=== PATIENT | male | born 1985 | race Caucasian/White ===

== ENCOUNTER 2021-05-19 09:25 | Outpatient (REF) | payer OTHER, SELFPAY ==
[2021-05-19 11:19] LABS: MANUAL DIFF FLAG NO
[2021-05-19 11:29] LABS: Eosinophils Absolute Auto 0.4 X10*3/uL (0.0-0.4); Eosinophils Percent Auto 9.8 % (0-4); Hematocrit 43.4 % (42.0-52.0); Hemoglobin 14.6 g/dl (14.0-18.0); Imm Gran Abs Auto 0.01 X10*3/uL (0.00-0.03); Imm Gran Pct Auto 0.2 % (0.0-0.4); Lymphocytes Absolute Auto 1.2 X10*3/uL (1.2-4.9); Lymphocytes Percent Auto 29.1 % (20-40); Mean Corpuscular HGB Conc 33.6 g/dl (31.0-36.0); Mean Corpuscular Hemoglobin 30.5 pg (27.0-33.0); Mean Corpuscular Volume 90.8 fL (80.0-98.0); Mean Platelet Volume 9.5 fL (9.4-12.4); Monocytes Absolute Auto 0.4 X10*3/uL (0.1-1.2); Monocytes Percent Auto 9.8 % (2-11); Neutrophils Absolute Auto 2.1 x10*3/uL (2.0-8.3); Neutrophils Percent Auto 50.1 % (45-73); Platelet Count 221 X10*3/uL (160-400); Red Blood Count 4.78 X10*6/uL (4.60-5.80); Red Cell Distribution Width 11.9 % (11.0-16.0); White Blood Count 4.2 X10*3/uL (4.8-10.8)
[2021-05-19 11:43] LABS: Alanine Aminotransferase 28 U/L (0-40); Albumin Level 4.4 g/dL (3.5-5.0); Alkaline Phosphatase 76 U/L (39-117); Anion Gap 14 (12-20); Aspartate Amino Transferase 21 U/L (5-37); Bilirubin Total 0.5 mg/dL (0.0-1.0); Blood Urea Nitrogen 15 mg/dL (9-16); Calcium 9.4 mg/dL (8.4-10.2); Carbon Dioxide 28 mmol/L (22-29); Chloride 103 mmol/L (96-108); Estimated Glomerular Filt Rate > 60; Glucose Fasting 87 mg/dL (60-99); Potassium 4.5 mmol/L (3.3-5.1); Sodium 140 mmol/L (135-145); Total Protein 6.9 g/dL (6.5-8.0)
[2021-05-19 12:05] LABS: Thyroid Stimulating Hormone 0.69 uIU/mL (0.32-4.0)
[2021-05-23 12:16] LABS: Vitamin D 25-OH, D2 <4 ng/mL; Vitamin D 25-OH, D3 34 ng/mL; Vitamin D 25-OH, Total 34 ng/mL (30-100)
== END 2021-05-19 09:26 | disposition home or self-care (01) ==
LOC: HO.HMGCLDS 09:25
PROVIDERS: Visit Provider Internal Medicine
DX: R53.82 Chronic fatigue, unspecified (principal); E55.9 Vitamin D deficiency, unspecified; D64.9 Anemia, unspecified
CPT/HCPCS: 36415; 80053; 82306; 84443; 85025

== ENCOUNTER 2022-02-24 10:34 | Outpatient (REF) | payer OTHER, SELFPAY ==
[2022-02-26 02:12] LABS: Lyme Abs Screen <0.90 index
== END 2022-02-24 10:35 | disposition home or self-care (01) ==
LOC: HO.HMGCLDS 10:34
PROVIDERS: PCP Internal Medicine; Visit Provider Physician Assistant
DX: R21 Rash and other nonspecific skin eruption (principal)
CPT/HCPCS: 36415; 86617; 86618

== ENCOUNTER 2022-05-24 10:05 | Outpatient (REF) | payer OTHER, SELFPAY ==
--- NOTE | ~2022-05-24 | XR_ITS ---
EXAMINATION: XR HAND, RIGHT CLINICAL INFORMATION: Pain in right hand COMPARISON: None TECHNIQUE: PA, lateral, and oblique views of the right hand. FINDINGS: The bones and soft tissues are normal. No fracture. Alignment is anatomic. Joint spaces are maintained. No erosions or soft tissue calcifications. XR/XR hand RT min 3V IMPRESSION: Unremarkable right hand.
== END 2022-05-24 10:06 | disposition home or self-care (01) ==
LOC: HO.HMGCX 10:05
PROVIDERS: PCP Internal Medicine; Visit Provider Physician Assistant
DX: M79.641 Pain in right hand (principal)
CPT/HCPCS: 73130

== ENCOUNTER 2022-07-08 14:31 | Outpatient (REF) | payer OTHER, SELFPAY ==
--- NOTE | ~2022-07-08 | XR_ITS ---
EXAMINATION: XR WRIST, RIGHT CLINICAL INFORMATION: Pain in the wrist. COMPARISON: None TECHNIQUE: Three views of the right wrist. FINDINGS: No fracture. No dislocation. Joint spaces are normal. No soft tissue calcification or other soft tissue abnormality. XR/XR wrist RT min 3V IMPRESSION: Normal right wrist.
== END 2022-07-08 14:32 | disposition home or self-care (01) ==
LOC: HO.HOSX 14:31
PROVIDERS: Visit Provider Physician Assistant
DX: M67.431 Ganglion, right wrist (principal); G56.01 Carpal tunnel syndrome, right upper limb
CPT/HCPCS: 73110; 99202

== ENCOUNTER 2022-08-02 16:22 | Outpatient (REF) | payer OTHER, SELFPAY ==
--- NOTE | ~2022-08-02 | US_ITS ---
EXAMINATION: US SCROTUM CLINICAL INFORMATION: Right testicular pain. COMPARISON: None TECHNIQUE: A sonogram of the scrotum was performed assessing rogers-scale appearance and color Doppler flow. Spectral Doppler analysis of the arterial and venous flow were performed in the testes bilaterally. FINDINGS: RIGHT: Right testicle measures 4.6 x 2.3 x 3.0 cm, volume 16.7 mL. No focal testicular parenchymal lesions are visualized. Spectral Doppler analysis of the arterial and venous flow is normal in the right testis. Right epididymal head is normal in size. No right hydrocele or varicocele is seen. Right epididymal Doppler flow is normal. LEFT: Left testicle measures 4.4 x 2.0 x 2.5 cm, volume 11.9 mL. No focal testicular parenchymal lesions are visualized. Spectral Doppler analysis of the arterial and venous flow is normal in the left testis. Left epididymal head is normal in size. No left hydrocele is seen. There are a few left varicoceles. Left epididymal Doppler flow is normal. US/US scrotum IMPRESSION: 1. No testicular mass or torsion is seen bilaterally. 2. A few left varicoceles are noted. 3. There is no significant hydrocele noted bilaterally.
== END 2022-08-02 16:23 | disposition home or self-care (01) ==
LOC: HO.US 16:22
PROVIDERS: Visit Provider Internal Medicine
DX: N50.811 Right testicular pain (principal)
CPT/HCPCS: 76870

== ENCOUNTER 2022-08-15 10:29 | Outpatient (REF) | payer OTHER, SELFPAY ==
[2022-08-15 10:58] LABS: MANUAL DIFF FLAG NO
[2022-08-15 11:04] LABS: Basophils Absolute Auto 0.1 X10*3/uL (0.0-0.2); Basophils Percent Auto 0.8 % (0-2); Eosinophils Absolute Auto 0.4 X10*3/uL (0.0-0.4); Hematocrit 44.7 % (42.0-52.0); Imm Gran Abs Auto 0.01 X10*3/uL (0.00-0.03); Imm Gran Pct Auto 0.2 % (0.0-0.4); Lymphocytes Absolute Auto 1.3 X10*3/uL (1.2-4.9); Lymphocytes Percent Auto 21.4 % (20-40); Mean Corpuscular HGB Conc 33.6 g/dl (31.0-36.0); Mean Corpuscular Hemoglobin 30.1 pg (27.0-33.0); Mean Corpuscular Volume 89.6 fL (80.0-98.0); Mean Platelet Volume 9.4 fL (9.4-12.4); Monocytes Absolute Auto 0.6 X10*3/uL (0.1-1.2); Monocytes Percent Auto 10.4 % (2-11); NRBC Pct Auto 0.3 /100WBC (0.0-0.2); Neutrophils Absolute Auto 3.7 x10*3/uL (2.0-8.3); Neutrophils Percent Auto 61.2 % (45-73); Platelet Count 222 X10*3/uL (160-400); Red Blood Count 4.99 X10*6/uL (4.60-5.80); Red Cell Distribution Width 11.9 % (11.0-16.0)
[2022-08-15 11:43] LABS: Anion Gap 13 (12-20); Blood Urea Nitrogen 13 mg/dL (9-16); Calcium 9.5 mg/dL (8.4-10.2); Carbon Dioxide 27 mmol/L (22-29); Chloride 103 mmol/L (96-108); Estimated Glomerular Filt Rate > 60; Glucose Random 83 mg/dL (60-115); Potassium 4.3 mmol/L (3.3-5.1); Sodium 139 mmol/L (135-145)
[2022-08-15 11:45] LABS: Influenza A PCR NEGATIVE (Negative); Influenza B PCR NEGATIVE (Negative); Resp Syncy Virus RNA Qual PCR POSITIVE (Negative); SARS COV2 PCR INHOUSE NEGATIVE (Negative)
== END 2022-08-15 10:30 | disposition home or self-care (01) ==
LOC: HO.HMGCLDS 10:29
PROVIDERS: PCP Internal Medicine; Visit Provider Physician Assistant
DX: Z20.822 Contact with and (suspected) exposure to COVID-19 (principal); R63.0 Anorexia; B34.9 Viral infection, unspecified
CPT/HCPCS: 0241U; 36415; 80048; 85025

== ENCOUNTER → 2022-10-06 13:59 | Outpatient (BNVA) | payer OTHER, SELFPAY | PROVIDERS: PCP Internal Medicine; Visit Provider Urology | DX: I86.1 Scrotal varices (principal); R53.82 Chronic fatigue, unspecified | CPT/HCPCS: 99202 ==

== ENCOUNTER 2022-10-13 11:31 | Outpatient (REF) | payer OTHER, SELFPAY ==
--- NOTE | 2022-10-13 10:00 | EMG_ITS ---
Right median and ulnar motor and sensory studies were performed. Right radial sensory studies were performed. Right median and lateral antecubital sensory studies were performed and paraspinal muscles were tested. IMPRESSION: This is an unremarkable study with no added evidence of entrapment neuropathy or a proximal lesion. MD GEORGIA Villar/ACEL / [phone]
== END 2022-10-13 11:32 | disposition home or self-care (01) ==
LOC: HO.NEURO 11:31
PROVIDERS: PCP Internal Medicine; Visit Provider Physician Assistant
DX: G56.01 Carpal tunnel syndrome, right upper limb (principal)
CPT/HCPCS: 95886; 95910

== ENCOUNTER → 2022-12-12 14:48 | Outpatient (BNVA) | payer OTHER, SELFPAY | PROVIDERS: PCP Internal Medicine; Visit Provider Physician Assistant ==

== ENCOUNTER 2023-01-19 13:03 | Outpatient (AMB) | payer OTHER, SELFPAY ==
[2023-01-19 13:05] VITALS: BP 122/77; PULSE 56; BMI 28.3
--- NOTE | 2023-01-19 13:05 | MHC.OFFVIS ---
Intake Vital Signs 01/19/23 13:05 Height 5 ft 11 in Weight 203 lb BMI 28.3 BP 122/77 Blood Pressure Location Rt brachial Position Sitting Pulse 56 Intake Visit Reasons: Hemorrhoids Intake Note: This patient presents for an assessment for hemorrhoids. Patient c/o; 2018 had colonoscopy, rectal bleeding when wiping, constipation, straining with bowel movements. Telephone Order Dispatcher Required: No Accompanied by: Other Relationship Allergies No Known Allergies Allergy (Verified 01/19/23 13:05) Medication List - Last Reconciled 01/19/23 by Weston Bashir MD No Known Home Meds HPI Hemorrhoids HPI Details 37-year-old healthy male, referred because of hemorrhoid issues. He says he has had hemorrhoids for many years. He says he had a bad episode of hemorrhoids swelling about 5 years ago but he did not have any surgery at that time He says for the past 2-3 months, he has been noticing his hemorrhoids to be much larger. Furthermore, he has had difficulty with hygiene because of this. He says he has to wipe frequently after bowel movements because of the size of the hemorrhoids causing problems with cleaning. He has significant discomfort and says that it is time that he has this removed. He says he had a problem with constipation in the distant past. [facility] Medical History (Updated 01/19/23 @ 13:47 by Weston Bashir MD) Basal cell carcinoma Chronic fatigue Hemorrhoids with complication Surgical History History of basal cell carcinoma of skin History of knee surgery Family History Mother Skin cancer Breast cancer Father Substance use disorder Social History Housing: Apartment Alcohol intake: current Alcohol intake frequency: holidays/special occasions only Alcohol type: beer Patient Tobacco Use Status: Never used Tobacco e-Cigarette/Vaping Use: Never Used Second Hand Smoke Exposure: No service: Yes Current occupational status: employed Current occupational exposures/hazards: No Cognitive needs: No Hearing needs: No Vision needs: No Review of Systems Const Denies chills and Denies fever(s) Card Denies chest pain, Denies dyspnea and Denies dyspnea on exertion Resp Denies cough, Denies dyspnea and Denies dyspnea on exertion GI Denies hematochezia and Denies change in bowel habits Denies hematuria and Denies difficulty urinating Musc Denies back pain and Denies limited range of motion Neuro Denies focal weakness and Denies convulsions Psych Denies depression and Denies mood swings Physical Exam Vital Signs: Last Vital Signs Pulse 56 01/19/23 13:05 BP 122/77 01/19/23 13:05 BMI result Body Mass Index 28.3 Const General: comfortable and no acute distress Orientation/consciousness: patient oriented x3 Neck Neck: Yes no lymphadenopathy Resp Auscultation: clear to auscultation bilaterally Cardio Rhythm: regular rhythm GI Other: Rectal exam shows a large external hemorrhoid, chronically sclerosed, which seems to be on the right side, about 2.5 cm long, anoscopy done Palpation (GI): Soft to palpation, nontender and no guarding Neuro General: patient oriented x3 Office Procedures Anoscopy He was in anton-knife position. The anoscope was gently inserted. There was note of a large hemorrhoidal column on the right which was most external. He has small hemorrhoidal columns on the left. Exam was difficult because of his significant discomfort so visualization was not optimal. [id number] Assessment & Plan Assessment & Plan (1) Hemorrhoids with complication: Code(s): K64.8 - Other hemorrhoids Plan: The large hemorrhoid which appears to be mostly external. This been causing him significant pain, and discomfort and difficulty with hygiene. He wants to proceed with hemorrhoidectomy. I explained him the technique of exam under anesthesia and hemorrhoidectomy. I reviewed with him the risks including but not limited to bleeding, infection, postop pain, as well as the benefits and alternatives. He understands and wants to proceed as he has had these issues for a while. His was with him during the visit. I also explained to him what to expect postoperatively. Coding Level of Care Code New Pt Level 3 (25886) Diagnoses Hemorrhoids with complication K64.8 CPT Codes Details - CPT: 83344-[place] ([id number])
== END 2023-01-19 13:46 | disposition home or self-care (01) ==
PROVIDERS: PCP Internal Medicine; Referring Provider Internal Medicine; Visit Provider Surgery
DX: K64.8 Other hemorrhoids (principal)
CPT/HCPCS: 46600; 99203

== ENCOUNTER → 2023-01-19 13:03 | Outpatient (BNVA) | payer OTHER, SELFPAY | PROVIDERS: PCP Internal Medicine; Referring Provider Internal Medicine; Visit Provider Surgery | DX: K64.8 Other hemorrhoids (principal) | CPT/HCPCS: 46600; 99202 ==

== ENCOUNTER 2023-02-17 07:10 | Day surgery (SDC) | payer OTHER, SELFPAY ==
[2023-02-15 10:56] VITALS: BMI 28.3
--- NOTE | 2023-02-16 11:45 | HO.ANESPROP2 ---
Documented by User: Martha Sullivan NP 02/16/23 11:49 HPI - Anesthesia Eval Consult details Narrative: 37yo M for Exam Under Anesthesia, Hemorrhoidectomy PMFSH Active Problems Active Problems: All Active Problems (Updated 01/19/23 @ 13:47 by Weston Bashir MD) Hemorrhoids with complication (Acute) Hemorrhoid prolapse (Acute) Cauliflower ear, right ear (Acute) Testicular pain (Acute) Varicocele present on ultrasound of scrotum (Acute) Varicocele (Acute) Ganglion cyst of dorsum of right wrist (Acute) Carpal tunnel syndrome of right wrist (Acute) Ganglion cyst of volar aspect of right wrist (Acute) Testicular pain, right (Acute) Physical exam (Acute) Pain of hand (Acute) Keloid scar (Acute) Adenopathy (Acute) Allergic symptoms (Acute) Chronic fatigue (Acute) Basal cell carcinoma (Acute) Past Medical History Medical History (Updated 01/19/23 @ 13:47 by Weston Bashir MD) Basal cell carcinoma Chronic fatigue Hemorrhoids with complication Family History Family History Mother Skin cancer Breast cancer Father Substance use disorder Surgical History Surgical History History of basal cell carcinoma of skin History of knee surgery Social History Social History Housing: Apartment Alcohol intake: current Alcohol intake frequency: holidays/special occasions only Alcohol type: beer Patient Tobacco Use Status: Never used Tobacco e-Cigarette/Vaping Use: Never Used Second Hand Smoke Exposure: No Are you DNR?: No Advance Directives: No Advance Directives Information Provided: Yes service: Yes Current occupational status: employed Current occupational exposures/hazards: No Cognitive needs: No Hearing needs: No Vision needs: No Meds Allergies Allergy/AdvReac Type Severity Reaction Status Date / Time No Known Allergies Allergy Verified 01/19/23 13:05 Home Medications Medication Instructions Recorded Confirmed Last Taken Type No Known Home Meds 12/13/22 01/19/23 Unknown History Exam Exam Date and Time: February 16, 2023 1145 Height,Weight and Vital Signs: Height 5 ft 11 in Weight 92.079 kg Pertinent Lab Results Pertinent Lab Results: Laboratory Tests 08/15/22 08/15/22 10:35 10:35 WBC 6.0 Hgb 15.0 Hct 44.7 Plt Count 222 Sodium 139 Potassium 4.3 Chloride 103 Carbon Dioxide 27 BUN 13 Creatinine 1.07 Assessment and Plan Assessment Anesthesia Assessment: Chart Reviewed Documented by User: Reji Candelaria MD 02/17/23 08:15 [facility] Past Medical History Medical History (Updated 01/19/23 @ 13:47 by Weston Bashir MD) Basal cell carcinoma Chronic fatigue Hemorrhoids with complication Family History Family History Mother Skin cancer Breast cancer Father Substance use disorder Family history of problems with anesthesia: No Surgical History Surgical History History of basal cell carcinoma of skin History of knee surgery History of Problems with Anesthesia: No Social History Social History Housing: Apartment Alcohol intake: current Alcohol intake frequency: holidays/special occasions only Alcohol type: beer Patient Tobacco Use Status: Never used Tobacco e-Cigarette/Vaping Use: Never Used Second Hand Smoke Exposure: No Are you DNR?: No Advance Directives: No Advance Directives Information Provided: Yes service: Yes Current occupational status: employed Current occupational exposures/hazards: No Cognitive needs: No Hearing needs: No Vision needs: No Meds Allergies Allergy/AdvReac Type Severity Reaction Status Date / Time No Known Allergies Allergy Verified 01/19/23 13:05 Home Medications Medication Instructions Recorded Confirmed Last Taken Type No Known Home Meds 12/13/22 01/19/23 Unknown History Exam Airway Mallampati Class: I TM Dist: >3cm Neck ROM: Full Loose/Missing/Broken Teeth: No Heart: ok Lungs: ok Assessment and Plan Assessment Anesthesia Assessment: Anesthesia Plan Discussed Final Anesthetic Review Family History of Problems with Anesthesia: No History of Problems with Anesthesia: No NPO: Yes ASA Class: II Final Preanesthetic Review: No Changes in Pt Med Stat, Meds/Allgs Chart Reviewed, Consent Obtained/Reviewed and Anes Risks/Benef Reviewed Patient Risk: Low Procedure Risk: Intermediate Anesthetic Plan Anesthetic Plan: GA and Agree w/ Assess. and Plan Disposition: Standard PACU
[2023-02-17 07:14] VITALS: BP 126/68; PULSE 57; RESP 20; TEMP 36.6; O2SAT 98
[2023-02-17] MEDS: Lactated Ringers 1,000 ML 100 ML IVCONT (07:29)
--- NOTE | 2023-02-17 08:39 | MHC.SHP ---
Pre-Procedural Eval Section A Date of Service: 02/17/23 The patient is an INPATIENT: No Changes since office visit: No Cold of Flu in the past 2 weeks, No New Medical Problems, No Changes in Medication and No Patient answered all questions The History & Physical has been completed within 30 days and I have reviewed it.: Yes Section B Chief Complaint: Other hemorrhoids Allergies: Allergies Allergy/AdvReac Type Severity Reaction Status Date / Time No Known Allergies Allergy Verified 01/19/23 13:05 Plan I have reviewed the history and physical and performed a pertinent physical examination on my patient. No changes have occurred unless specified. Time Spent With Patient Time: Total time managing care of this patient today ____ minutes.
--- NOTE | 2023-02-17 09:13 | P.OP_ITS ---
Operative Note Operative Note Date of Service: 02/17/23 Narrative: Preop diagnosis: Large external hemorrhoids Postop diagnosis: The same Procedure: Exam under anesthesia hemorrhoidectomy times 2 columns Surgeon: Weston Bashir MD The patient is a 37-year-old male was had a long history problems with hygiene and discomfort with this hemorrhoids. Examination of the in the office reveal of large external hemorrhoid on the right side and he says that this had been the 1 that is bothering him. He understood the technique of hemorrhoidectomy and was aware of the risks, benefits, and alternatives. He was brought to the operating room. He was placed in prone anton-knife pos ition under general seizure via endotracheal tube. The buttocks were retracted with wide tape laterally. The perianal area was prepped draped in the usual sterile fashion. A surgical time-out was done. The patient received Cefotan 2 g IV preoperatively . The perianal area was infiltrated with lidocaine 1%. Examination of the anal orifice revealed this large hemorrhoidal column, external, anal verge. This was about 2.5 cm in diameter . I inserted the Roz Farrell retractor and examined the anal canal circumferentially. It have smaller internal hemorrhoidal columns as well. There was another external hemorrhoid column on the right anterior which was at the anal verge as well about 8 mm in size I retracted the external ring the column with a Gomes grasper. I applied a figure of 8 stitch at the pedicle using a carpet 3-0. An incision around this hemorrhoidal column using blade [address] the perianal skin. I excised this hemorrhoidal column column above the plane of the sphincters along this incision using scissors. I closed this incision with a running chromic 3-0 stitch .Additional hemostatic [id number] sutures were placed for oozing areas There was a smaller external hemorrhoidal column on the right side as well anteriorly and excise this in the same fashion as above. I closed this incision with a running chromic 3-0 stitch as well Once hemostasis was confirmed, I re-examined the entire anal canal. There was no other pathology. There was no other lesion or any fissure or ulcer I infiltrated the perianal area with Marcaine 0.5% for postop analgesia. The procedure was then completed . The patient tolerated procedure well. There were no immediate complications. Initial and final counts of sponges and instruments were correct. Estimated blood loss was about 10 cc The patient was extubated without difficulty and transferred to the recovery room with stable vital signs
[2023-02-17 09:34] VITALS: BP 119/76; PULSE 56; RESP 12; TEMP 36.4; O2SAT 98
[2023-02-17 09:39] VITALS: BP 127/67; PULSE 53; RESP 12; O2SAT 96
[2023-02-17 09:44] VITALS: BP 120/77; PULSE 52; RESP 16; O2SAT 98
[2023-02-17 09:51] VITALS: BP 111/78; PULSE 51; RESP 16; O2SAT 98
[2023-02-17 10:06] VITALS: BP 111/71; PULSE 55; RESP 16; TEMP 36.4; O2SAT 98
== END 2023-02-17 10:35 | disposition home or self-care (01) ==
PROVIDERS: PCP Internal Medicine; Visit Provider Surgery
PROC: (CPT 46260; principal; 2023-02-17 08:30)
PROC: (CPT 46260; 2023-02-17 08:30)
DX: K64.8 Other hemorrhoids (principal); K64.4 Residual hemorrhoidal skin tags; R53.82 Chronic fatigue, unspecified; Z85.828 Personal history of other malignant neoplasm of skin
CPT/HCPCS: 46260; 88304; J1885; J2250; J2405; J2795; J3010

== ENCOUNTER → 2023-02-17 07:10 | Outpatient (BNV) | payer OTHER, SELFPAY | PROVIDERS: PCP Internal Medicine; Visit Provider Surgery | DX: K64.9 Unspecified hemorrhoids (principal) | CPT/HCPCS: 46320 ==

== ENCOUNTER 2023-03-02 09:37 | Outpatient (AMB) | payer OTHER, SELFPAY ==
--- NOTE | 2023-03-02 09:38 | A.OFFVIS_ITS ---
Intake Vital Signs 03/02/23 09:43 Weight 204 lb BP 142/83 H Blood Pressure Location Rt brachial Position Sitting Pulse 59 Intake Visit Reasons: S/P hemorrhoidectomy Intake Note: This patient presents for a post-op assessment status post hemorrhoidectomy. Patient c/o; reports no changes or concerns at this time. Change Control Manager Required: No Accompanied by: Spouse Allergies No Known Allergies Allergy (Verified 03/02/23 09:44) HPI S/P hemorrhoidectomy HPI Details He underwent hemorrhoidectomy x2 columns last 02/17/2023. He tolerated procedure well. He currently denies significant complaints. [facility] Medical History Hemorrhoids with complication Chronic fatigue Basal cell carcinoma Surgical History History of hemorrhoidectomy History of knee surgery History of basal cell carcinoma of skin Family History Mother Skin cancer Breast cancer Father Substance use disorder Social History Housing: Apartment Alcohol intake: current Alcohol intake frequency: holidays/special occasions only Alcohol type: beer Patient Tobacco Use Status: Never used Tobacco e-Cigarette/Vaping Use: Never Used Second Hand Smoke Exposure: No service: Yes Current occupational status: employed Current occupational exposures/hazards: No Cognitive needs: No Hearing needs: No Vision needs: No Review of Systems Const Denies chills and Denies fever(s) Card Denies chest pain, Denies dyspnea and Denies dyspnea on exertion Resp Denies cough, Denies dyspnea and Denies dyspnea on exertion GI Denies hematochezia and Denies change in bowel habits Denies hematuria and Denies difficulty urinating Musc Denies back pain and Denies limited range of motion Neuro Denies focal weakness and Denies convulsions Psych Denies depression and Denies mood swings Physical Exam Const General: no acute distress Resp Effort & Inspection: normal respiratory effort GI Other: Rectal exam shows the incisions are well healed, not infected, no induration, no discharge, some residual edema seen Assessment & Plan Assessment & Plan (1) Hemorrhoids with complication: Code(s): K64.8 - Other hemorrhoids Plan: Status post hemorrhoidectomy x2 columns. His path report shows fibroepithelial polyps versus anal papillae. His incisions are healing well although there is still some edema on 1 area.. I have instructed him to continue doing hot Sitz baths. He can follow up on a p.r.n. basis Coding Level of Care Code Global (09988) Diagnoses Hemorrhoids with complication K64.8
[2023-03-02 09:43] VITALS: BP 142/83; PULSE 59
== END 2023-03-02 09:49 | disposition home or self-care (01) ==
PROVIDERS: PCP Internal Medicine; Visit Provider Surgery
DX: K64.8 Other hemorrhoids (principal)
CPT/HCPCS: 99024

== ENCOUNTER → 2023-03-02 09:37 | Outpatient (BNVA) | payer OTHER, SELFPAY | PROVIDERS: PCP Internal Medicine; Visit Provider Surgery ==

== ENCOUNTER 2023-07-10 09:28 | Outpatient (AMB) | payer OTHER, SELFPAY ==
[2023-07-10 09:30] VITALS: BP 122/80; BMI 28.9
--- NOTE | 2023-07-10 09:30 | MHC.PC.OV ---
Vital Signs 07/10/23 09:30 Height 5 ft 11 in Weight 207 lb BMI 28.9 BP 122/80 Blood Pressure Location Lt brachial Position Sitting Intake Visit Reasons: Annual Exam Intake Note: Patient here for an annual physical Top Collar Maker Required: No Accompanied by: Self / Same As Patient Allergies No Known Allergies Allergy (Verified 07/10/23 09:44) Medication List - Last Reconciled 07/10/23 by Gladis Rendon MD No Known Home Meds Tobacco use date assessed: 07/10/23 Dental Screening Dental Screen Date: 07/10/23 Did you have a dental visit in the last 12 months?: Yes Did you have a dental problem in the last 6 months where you did not have access to dental care?: No Was dental information given to patient?: Patient has dentist HPI HPI Comments History of Present Illness Details This is a 38-year-old male that comes for his physical exam. No chest pain or shortness of breath. Doing well. [facility] Medical History Hemorrhoids with complication Chronic fatigue Basal cell carcinoma Surgical History History of hemorrhoidectomy History of knee surgery History of basal cell carcinoma of skin Family History Mother Skin cancer Breast cancer Father Substance use disorder Social History Housing: Apartment Alcohol intake: current Alcohol intake frequency: holidays/special occasions only Alcohol type: beer Patient Tobacco Use Status: Never used Tobacco e-Cigarette/Vaping Use: Never Used Second Hand Smoke Exposure: No service: Yes Current occupational status: employed Current occupational exposures/hazards: No Cognitive needs: No Hearing needs: No Vision needs: No Questionnaire PHQ-9 Over the last 2 weeks, how often have you been bothered by any of the following problems? 1. Little interest or pleasure in doing things: not at all 2. Feeling down, depressed, or hopeless: not at all 3. Trouble falling or staying asleep, or sleeping too much: not at all 4. Feeling tired or having little energy: not at all 5. Poor appetite or overeating: not at all 6. Feeling bad about yourself - or that you are a failure or have let yourself or your family down: not at all 7. Trouble concentrating on things, such as reading the newspaper or watching television: not at all 8. Moving or speaking so slowly that other people could have noticed. Or the opposite - being so fidgety or restless that you have been moving around a lot more than usual: not at all 9. Thoughts that you would be better off or of hurting yourself in some way: not at all Total score: 0 Depression Screening Interpretation: Negative Depression Screening Done: Yes 98763 - PHQ-9 Billing: Yes Source: Developed by Drs. Zhou Peralta, Terri Moore, Eliud Phan and colleagues, with an educational piyush from [employer]. Thrive Questionnaire Date Thrive assessed: 07/10/23 I am a: Patient What is your living situation today?: I have a steady place to live Within the past 12 months, did the food you bought not last and you didn't have the money to get more?: Never true Within the past 12 months, did you worry whether your food would run out before you got money to buy more?: Never true Do you have trouble paying for medicines?: No Do you have trouble getting transportation to medical appointments?: No Do you have trouble paying your heating and electricity bill?: No Do you have trouble taking care of your child, family member or friend?: No Do you have trouble with day-to-day activities such as bathing, preparing meals, shopping, managing finances, etc.?: No Are you currently unemployed and looking for a job?: No Are you interested in more education?: No Please select the resources that you would like help with: None AUDIT C Alcohol Use Questionnaire (AUDIT-C) 1. How often do you have a drink containing alcohol?: Monthly or less 2. How many drinks containing alcohol do you have on a typical day when you are drinking?: 1 or 2 3. How often do you have six or more drinks on one occasion?: Never Total Score: 1 Score Reviewed/Action Taken: No SHERICE-7 AMB Questionnaire HSERICE-7 Date SHERICE - 7 assessed: 07/10/23 Feeling nervous, anxious, or on edge: 0 = Not at all Not being able to stop or control worryin = Not at all Worrying too much about different things: 0 = Not at all Trouble relaxin = Not at all Being so restless that it is hard to sit still: 0 = Not at all Becoming easily annoyed or irritable: 0 = Not at all Feeling afraid as if something awful might happen: 0 = Not at all Total SHERICE-7 score (0-4 normal; 5-9 mild; 10-14 moderate; 15-21 severe): 0 Source: Developed by Drs. Zhou Peralta, Terri Moore, Eliud Phan and colleagues, with an educational piyush from [employer]. SHERICE-7 Assessment Billing SHERICE-7 Assessment Tool: SHERICE-7 Assessment 21980 Review of Systems Const All systems reviewed & are unremarkable except as noted in HPI and below Eyes Reports no additional complaints, Denies change in vision and Denies other visual disturbances Card Denies chest pain at rest, Denies chest pain with activity, Denies edema, Denies irregular heart rhythm, Denies claudication, Denies dyspnea, Denies dyspnea on exertion, Denies orthopnea, Denies paroxysmal nocturnal dyspnea and Denies slow heart rate Resp Denies cough, Denies dyspnea and Denies dyspnea on exertion GI Denies abdominal pain, Denies change in bowel habits, Denies excessive flatus, Denies nausea and Denies vomiting Denies urinary hesitancy, Denies urinary incontinence and Denies urinary urgency Musc Denies abnormal gait, Denies atrophy, Denies deformity and Denies limited range of motion Skin/Breast Denies bleeding lesions, Denies changing lesions and Denies rash Neuro Denies abnormal gait, Denies behavioral changes, Denies confusion and Denies lack of coordination Psych Denies behavioral changes and Denies confusion Physical exam (Primary Care) Vital Signs: Last Vital Signs BP 122/80 07/10/23 09:30 BMI result Body Mass Index 28.9 Tobacco/Smoking Status: Tobacco use Status Tobacco use date assessed 07/10/23 07/10/23 09:35 Patient Tobacco Use Status Never used Tobacco 07/10/23 09:35 e-Cigarette/Vaping Use Never Used 07/10/23 09:35 PHQ-9: PHQ-9 Score PHQ-9: Total score 0 07/10/23 09:36 Depression Screening Interpretation: Negative Thrive Assessment: Date of Thrive Assessment Date Thrive assessed 07/10/23 07/10/23 09:36 Const General: No confusion Orientation/consciousness: patient oriented x3 and No confusion HENMT Head: Yes normal to inspection, Yes normocephalic and Yes atraumatic Ears: external ears normal Eyes General: appearance normal, both eyes and all related structures Eyelids: Yes eyelids normal Conjunctivae: conjunctivae normal Neck Neck: Yes normal visual inspection and Yes supple Resp Effort & Inspection: normal respiratory effort Auscultation: clear to auscultation bilaterally Cardio Jugular venous distension: no JVD Rate: regular rate Rhythm: regular rhythm Heart sounds: S1 normal heart sound present and S2 normal heart sound present GI Inspection: Yes normal to inspection Palpation (GI): Soft to palpation and nontender Auscultation: normal bowel sounds Skin General skin exam: no rashes or lesions noted Neuro General: patient oriented x3, no focal motor deficits and No confusion Extrem General: Yes full ROM Psych Appearance: grossly normal Office Procedures Flu Questionnaire Does the patient have a severe egg allergy?: No Immunizations flu vacc [id number] 6mos up(PF) 60 mcg(15 mcgx4)/0.5 mL IM syringe Performing Provider: Gladis Rendon MD [facility] Documented (not given) by: TRUE Ruiz on 07/10/23 09:35 Reason Not Given: Received Previously Assessment and Plan Assessment & Plan (1) Physical exam: Code(s): Z00.00 - Encounter for general adult medical examination without abnormal findings Plan: Repeat in a year. Orders: Orders Influenza [id number] Immunization Today Z23 - Encounter for immunization Lipid Panel Today Z00.00 - Encounter for general adult medical examination without abnormal findings Comprehensive [place]. Panel Fast Today Z00.00 - Encounter for general adult medical examination without abnormal findings Coding Level of Care Code Est Pt Prev Care 18-39y(14901) Diagnoses Physical exam Z00.00 Additional Codes SHERICE-7 Assessment Billing - SHERICE-7 Assessment Tool: SHERICE-7 Assessment 21436 ([id number]) Time Spent (min) 32
== END 2023-07-10 09:52 | disposition home or self-care (01) ==
PROVIDERS: Visit Provider Internal Medicine
DX: Z00.00 Encounter for general adult medical examination without abnormal findings (principal)
CPT/HCPCS: 99395

== ENCOUNTER 2023-07-15 10:04 | Outpatient (AMB) | payer OTHER, SELFPAY ==
[2023-07-15 11:59] VITALS: BP 110/72; PULSE 62; TEMP 36.6; O2SAT 98; BMI 28.9
--- NOTE | 2023-07-15 11:59 | AM.OFFWIN_ITS ---
Intake Vital Signs 07/15/23 11:59 Height 5 ft 11 in Weight 207 lb BMI 28.9 BP 110/72 Blood Pressure Location Rt brachial Position Sitting Pulse 62 Pulse Source Pulse Oximeter Temp 97.9 F Temp Source Oral Pulse Oximetry (%) 98 Oxygen Delivery Method Room Air Intake Visit Reasons: EST/right eye pain (lobby) Intake Note: pt is here for c.o right eye pain, possible pink eye. patient states its irritated and causes some blurred vision for the last 3 days Patient Tobacco Use Status: Never used Tobacco Allergies No Known Allergies Allergy (Verified 07/15/23 12:35) Medication List - Last Reconciled 07/15/23 by Shara Naidu CNP No Known Home Meds Do you need a note to return to daycare/school/sports/work: Yes HPI HPI Comments History of Present Illness Details 38-year-old male presents to walk-in [facility] for complaint of right eye irritation, watery eye and pain x3 days. He denies mucousy or purulent drainage, He denies fever, chills, cough, headache, general body aches, abdominal pain or changes in bowel or bladder. He does admit to having a cold 1-2 weeks ago. [facility] Medical History Hemorrhoids with complication Chronic fatigue Basal cell carcinoma Surgical History History of hemorrhoidectomy History of knee surgery History of basal cell carcinoma of skin Family History Mother Skin cancer Breast cancer Father Substance use disorder Social History Housing: Apartment Alcohol intake: current Alcohol intake frequency: holidays/special occasions only Alcohol type: beer Patient Tobacco Use Status: Never used Tobacco e-Cigarette/Vaping Use: Never Used Second Hand Smoke Exposure: No service: Yes Current occupational status: employed Current occupational exposures/hazards: No Cognitive needs: No Hearing needs: No Vision needs: No Review of Systems Const All systems reviewed & are unremarkable except as noted in HPI and below Physical Exam Vital Signs: Last Vital Signs Temp 97.9 F 07/15/23 11:59 Pulse 62 07/15/23 11:59 BP 110/72 07/15/23 11:59 Pulse Ox 98 07/15/23 11:59 Oxygen Delivery Method Room Air 07/15/23 11:59 BMI result Body Mass Index 28.9 Const General: healthy appearing, no acute distress and well developed Nutritional Appearance: average body habitus Orientation/consciousness: patient oriented x3 Limitations: no limitations HEENT Head: Yes normal to inspection, Yes normocephalic and Yes atraumatic Ears: hearing grossly normal bilaterally and TM's normal bilaterally Face and sinus: Yes sinuses nontender Mouth: moist mucous membranes Eyes Eyelids: Yes eyelid abnormality (right upper eyelid, Internal hordeolum, base of right eyelid erythema) Conjunctivae: conjunctival abnormal right conjunctival injection (right eye); without discharge Sclerae: sclerae normal Corneas: corneas normal Neck Neck: Yes no meningeal signs Resp Effort & Inspection: normal respiratory effort, no cough, no respiratory distress and not tachypneic Auscultation: clear to auscultation bilaterally Cardio Rate: regular rate Rhythm: regular rhythm Heart sounds: S1 normal heart sound present and S2 normal heart sound present Peripheral pulses: Peripheral pulses 2+ throughout GI Inspection: Yes normal to inspection Palpation (GI): Soft to palpation, nontender and No hepatosplenomegaly present Auscultation: normal bowel sounds General: Yes no CVA tenderness Back/Spine/Pelvis Back: no CVA tenderness Neuro General: patient oriented x3, gait normal, moves all extremities and no meningeal signs Psych Appearance: well kempt Mental Status: mental status grossly normal Affect: normal affect Assessment & Plan Assessment & Plan (1) Blepharitis of eyelid of right eye: Code(s): H01.003 - Unspecified blepharitis right eye, unspecified eyelid Qualifiers: Blepharitis type: unspecified type Eyelid: upper Qualified Code(s): H01.001 - Unspecified blepharitis right upper eyelid Plan: 38-year-old male seen today in office for complaint of right eye irritation, watery, gritty sensation, no purulent drainage. physical exam reveals small palpable Internal hordeolum, base of right eyelid red and swollen. Encouraged to apply warm compresses to right upper eyelid to reduce swelling 3-4 times a day, encouraged to wash hands prior to toucing eye lid. Erythromycin opathalmic ointment to right upper eye lid bid x 5 days Return to office with worsening or unresolved symptoms. Medications: New erythromycin 0.5 inches ophthalmic (eye) BID 3.5 grams 0RF H10.9 - Unspecified conjunctivitis Coding Level of Care Code Est Pt Level 3 (13749) Diagnoses Blepharitis of right upper eyelid, unspecified type H01.001 Blepharitis type: unspecified type Eyelid: upper
== END 2023-07-15 12:43 | disposition home or self-care (01) ==
PROVIDERS: PCP Internal Medicine; Visit Provider Nurse Practitioner Acute Care
DX: H01.001 Unspecified blepharitis right upper eyelid (principal)
CPT/HCPCS: 99051; 99213

== ENCOUNTER 2023-09-12 08:02 | Outpatient (AMB) | payer OTHER, SELFPAY ==
--- NOTE | 2023-09-12 08:21 | MHC.OFFWIV ---
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 Patient states that over the past several days he has developed symptoms of cough, chills, sore throat, chest congestion. States he has been around sick contacts. Denies shortness of breath, chest pain, dizziness, numbness, nausea, vomiting, diarrhea. Will obtain upper respiratory swab. Will obtain chest x-ray. Will obtain labs CBC, BMP. [facility] Medical History Hemorrhoids with complication Chronic fatigue Basal cell carcinoma Surgical History History of hemorrhoidectomy History of knee surgery History of basal cell carcinoma of skin Family History Mother Skin cancer Breast cancer Father Substance use disorder Social History Housing: Apartment Alcohol intake: current Alcohol intake frequency: holidays/special occasions only Alcohol type: beer Patient Tobacco Use Status: Never used Tobacco e-Cigarette/Vaping Use: Never Used Second Hand Smoke Exposure: No service: Yes Current occupational status: employed Current occupational exposures/hazards: No Cognitive needs: No Hearing needs: No Vision needs: No Review of Systems Const All systems reviewed & are unremarkable except as noted in HPI and below Physical Exam Vital Signs: Last Vital Signs Temp 98.0 F 09/12/23 08:22 Pulse 71 09/12/23 08:22 BP 110/78 09/12/23 08:22 Pulse Ox 98 09/12/23 08:22 Oxygen Delivery Method Room Air 09/12/23 08:22 BMI result Body Mass Index 27.7 Vital signs reviewed stable Const Other: Appearance: Alert.? Oriented X3.? No acute distress.? Head: Normocephalic, atraumatic, no step-offs or deformities Eyes: Pupils equal, round and reactive to light.? ENT: Pharynx erythema. TM intact and pearly rogers. ? Neck: Normal inspection.? Neck supple.?Full ROM CVS: Normal heart rate and rhythm.? Pulses normal.? Respiratory: No respiratory distress.? Bilateral wheeze upper lobes. ? Neuro: Oriented X 3.? No motor deficit.? No sensory deficit. CN 2-12 intact Assessment & Plan Assessment & Plan (1) Chest congestion: Comment: Will obtain CBC, BMP, chest x-ray. Patient will be given albuterol, prednisone, azithromycin. Code(s): R09.89 - Other specified symptoms and signs involving the circulatory and respiratory systems Plan: Take your medications as prescribed. If you were prescribed antibiotics today, it is important that you take your medication to their entirety, do not skip any doses, do not finish them early. Follow-up with your primary care provider this week. Return to the emergency department with new or worsening symptoms. Such as fevers, chills, chest pain, shortness of breath, nausea, vomiting, dizziness, headache, vision changes, lethargy In case of emergency call 911 Plan Follow-up with PCP Coding Level of Care Code Est Pt Level 3 (54887) Diagnoses Chest congestion R09.89 Time Spent (min) 24
[2023-09-12 08:22] VITALS: BP 110/78; PULSE 71; TEMP 36.7; O2SAT 98; BMI 27.7
== END 2023-09-12 09:21 | disposition home or self-care (01) ==
PROVIDERS: PCP Internal Medicine; Visit Provider Nurse Practitioner Primary Care
DX: R09.89 Other specified symptoms and signs involving the circulatory and respiratory systems (principal)
CPT/HCPCS: 99213

== ENCOUNTER 2023-09-12 08:34 | Outpatient (REF) | payer OTHER, SELFPAY ==
--- NOTE | ~2023-09-12 | XR_ITS ---
EXAMINATION: XR CHEST CLINICAL INFORMATION: Other specified and signs involving the circulatory system. COMPARISON: None available. TECHNIQUE: 2 views of the chest were obtained. FINDINGS: Cardiac silhouette is normal in size. The lungs are well aerated. There is no lobar consolidation. No pleural effusion or pneumothorax. No acute osseous abnormality. XR/XR chest 2V IMPRESSION: No acute pulmonary pathology.
[2023-09-12 11:29] LABS: MANUAL DIFF FLAG NO
[2023-09-12 11:37] LABS: Basophils Absolute Auto 0.1 X10*3/uL (0.0-0.2); Basophils Percent Auto 1.3 % (0-2); Eosinophils Absolute Auto 0.6 X10*3/uL (0.0-0.4); Hematocrit 43.8 % (42.0-52.0); Hemoglobin 14.8 g/dl (14.0-18.0); Imm Gran Abs Auto 0.01 X10*3/uL (0.00-0.03); Imm Gran Pct Auto 0.2 % (0.0-0.4); Lymphocytes Absolute Auto 2.2 X10*3/uL (1.2-4.9); Lymphocytes Percent Auto 34.5 % (20-40); Mean Corpuscular HGB Conc 33.8 g/dl (31.0-36.0); Mean Corpuscular Hemoglobin 30.1 pg (27.0-33.0); Mean Corpuscular Volume 89.2 fL (80.0-98.0); Mean Platelet Volume 9.2 fL (9.4-12.4); Monocytes Absolute Auto 0.5 X10*3/uL (0.1-1.2); Monocytes Percent Auto 8.5 % (2-11); Neutrophils Absolute Auto 2.8 x10*3/uL (2.0-8.3); Neutrophils Percent Auto 45.5 % (45-73); Platelet Count 266 X10*3/uL (160-400); Red Blood Count 4.91 X10*6/uL (4.60-5.80); Red Cell Distribution Width 12.2 % (11.0-16.0); White Blood Count 6.2 X10*3/uL (4.8-10.8)
[2023-09-12 12:24] LABS: Anion Gap 13 (12-20); Blood Urea Nitrogen 15 mg/dL (9-16); Calcium 9.5 mg/dL (8.4-10.2); Carbon Dioxide 27 mmol/L (22-29); Chloride 103 mmol/L (96-108); Estimated Glomerular Filt Rate > 60; Glucose Random 86 mg/dL (60-115); Potassium 3.9 mmol/L (3.3-5.1); Sodium 139 mmol/L (135-145)
[2023-09-12 13:03] LABS: Influenza A PCR NEGATIVE (Negative); Influenza B PCR NEGATIVE (Negative); Resp Syncy Virus RNA Qual PCR NEGATIVE (Negative); SARS COV2 PCR INHOUSE NEGATIVE (Negative)
== END 2023-09-12 08:35 | disposition home or self-care (01) ==
LOC: HO.HMGCX 08:34
PROVIDERS: PCP Internal Medicine; Visit Provider Nurse Practitioner Primary Care
DX: R09.89 Other specified symptoms and signs involving the circulatory and respiratory systems (principal); D72.829 Elevated white blood cell count, unspecified; J06.9 Acute upper respiratory infection, unspecified; Z91.89 Other specified personal risk factors, not elsewhere classified
CPT/HCPCS: 0241U; 36415; 71046; 80048; 85025

== ENCOUNTER 2024-03-06 08:18 | Outpatient (AMB) | payer OTHER, SELFPAY ==
--- NOTE | 2024-03-06 08:29 | MHC.PC.OV ---
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 Accompanied by: Self / Same As Patient Allergies No Known Allergies Allergy (Verified 03/06/24 08:50) Medication List - Last Reconciled 03/06/24 by Gladis Rendon MD No Known Home Meds Tobacco use date assessed: 07/10/23 Dental Screening Dental Screen Date: 03/06/24 Did you have a dental visit in the last 12 months?: Yes Did you have a dental problem in the last 6 months where you did not have access to dental care?: No Was dental information given to patient?: Patient has dentist HPI HPI Comments History of Present Illness Details This is a 38-year-old male that comes today complaining of some anxiety associated with chest pressure and palpitations that started few months ago. Has an appointment with counselor next week for the 1st time in years. He had anxiety problem years ago. He has difficulty maintaining sleep. Will start him on low-dose escitalopram and refer him to psych outpatient to see if he will actually benefit from taking escitalopram. Side effects such as abdominal pain and sleepiness were advised. EKG will be order also due to chest pressure. [facility] Medical History (Updated 03/06/24 @ 09:05 by Gladis Rendon MD) Hemorrhoids with complication Chronic fatigue Basal cell carcinoma Surgical History History of hemorrhoidectomy History of knee surgery History of basal cell carcinoma of skin Family History Mother Skin cancer Breast cancer Father Substance use disorder Social History Housing: Apartment Alcohol intake: current Alcohol intake frequency: holidays/special occasions only Alcohol type: beer Patient Tobacco Use Status: Never used Tobacco e-Cigarette/Vaping Use: Never Used Second Hand Smoke Exposure: No service: Yes Current occupational status: employed Current occupational exposures/hazards: No Cognitive needs: No Hearing needs: No Vision needs: No Questionnaire PHQ-9 Over the last 2 weeks, how often have you been bothered by any of the following problems? 1. Little interest or pleasure in doing things: not at all 2. Feeling down, depressed, or hopeless: not at all 3. Trouble falling or staying asleep, or sleeping too much: several days 4. Feeling tired or having little energy: not at all 5. Poor appetite or overeating: not at all 6. Feeling bad about yourself - or that you are a failure or have let yourself or your family down: not at all 7. Trouble concentrating on things, such as reading the newspaper or watching television: not at all 8. Moving or speaking so slowly that other people could have noticed. Or the opposite - being so fidgety or restless that you have been moving around a lot more than usual: not at all 9. Thoughts that you would be better off or of hurting yourself in some way: not at all Total score: 1 Depression Screening Interpretation: Negative Depression Screening Done: Yes 65283 - PHQ-9 Billing: Yes Source: Developed by Drs. Zhou Peralta, Terri Moore, Eliud Phan and colleagues, with an educational piyush from [employer]. Thrive Questionnaire Date Thrive assessed: 03/06/24 I am a: Patient What is your living situation today?: I have a steady place to live Within the past 12 months, did the food you bought not last and you didn't have the money to get more?: Never true Within the past 12 months, did you worry whether your food would run out before you got money to buy more?: Never true Do you have trouble paying for medicines?: No Do you have trouble getting transportation to medical appointments?: No Do you have trouble paying your heating and electricity bill?: No Do you have trouble taking care of your child, family member or friend?: No Do you have trouble with day-to-day activities such as bathing, preparing meals, shopping, managing finances, etc.?: No Are you currently unemployed and looking for a job?: No Are you interested in more education?: No Please select the resources that you would like help with: None Currently or been in a relationship where the following occur: No concerns reported THRIVE Score: 0 AUDIT C Alcohol Use Questionnaire (AUDIT-C) 1. How often do you have a drink containing alcohol?: Monthly or less 2. How many drinks containing alcohol do you have on a typical day when you are drinking?: 1 or 2 3. How often do you have six or more drinks on one occasion?: Never Total Score: 1 Score Reviewed/Action Taken: No SHERICE-7 AMB Questionnaire SHERICE-7 Date SHERICE - 7 assessed: 03/06/24 Feeling nervous, anxious, or on edge: 3 = Nearly every day Not being able to stop or control worryin = Several days Worrying too much about different things: 3 = Nearly every day Trouble relaxin = Not at all Being so restless that it is hard to sit still: 2 = More than half the days Becoming easily annoyed or irritable: 1 = Several days Feeling afraid as if something awful might happen: 1 = Several days Total SHERICE-7 score (0-4 normal; 5-9 mild; 10-14 moderate; 15-21 severe): 11 Source: Developed by Drs. Zhou Peralta, Terri Moore, Eliud Phan and colleagues, with an educational piyush from [employer]. SHERICE-7 Assessment Billing SHERICE-7 Assessment Tool: SHERICE-7 Assessment 53579 Review of Systems Const All systems reviewed & are unremarkable except as noted in HPI and below Card Denies chest pain at rest, Denies chest pain with activity, Reports rapid heart rate, Denies edema, Denies irregular heart rhythm, Denies claudication, Denies dyspnea, Denies dyspnea on exertion, Denies orthopnea, Denies paroxysmal nocturnal dyspnea and Denies slow heart rate Resp Denies cough, Denies dyspnea and Denies dyspnea on exertion GI Denies abdominal pain, Denies change in bowel habits, Denies excessive flatus, Denies nausea and Denies vomiting Physical exam (Primary Care) Vital Signs: Last Vital Signs BP 120/86 03/06/24 08:30 BMI result Body Mass Index 27.8 Tobacco/Smoking Status: Tobacco use Status Tobacco use date assessed 07/10/23 03/06/24 08:34 Patient Tobacco Use Status Never used Tobacco 03/06/24 08:34 e-Cigarette/Vaping Use Never Used 03/06/24 08:34 PHQ-9: PHQ-9 Score PHQ-9: Total score 1 03/06/24 08:55 Depression Screening Interpretation: Negative Thrive Assessment: Date of Thrive Assessment Date Thrive assessed 03/06/24 03/06/24 08:34 Currently or been in a relationship where the following occur: No concerns reported Cardio Jugular venous distension: no JVD Rate: regular rate Rhythm: regular rhythm Heart sounds: S1 normal heart sound present and S2 normal heart sound present Extrem General: Yes full ROM Psych Appearance: grossly normal Assessment and Plan Assessment & Plan (1) Anxiety: Code(s): F41.9 - Anxiety disorder, unspecified Plan: Start escitalopram at bedtime. Referred to psych outpatient. Keep your appointment next week with counseling. (2) Chest pressure: Code(s): R07.89 - Other chest pain Plan: EKG ordered. Orders: Orders Lipid Panel Today R07.89 - Other chest pain Comprehensive [place]. Panel Fast Today R07.89 - Other chest pain Thyroid Stimulating Hormone Today R07.89 - Other chest pain Complete Blood Count Auto Diff Today R07.89 - Other chest pain ECG 12 lead EKG Today R07.89 - Other chest pain Referrals Psychiatry Outpatient Consultation Service F41.9 - Anxiety disorder, unspecified Medications: New escitalopram oxalate 5 mg PO BEDTIME 30 tabs 0RF 30 days F41.9 - Anxiety disorder, unspecified Coding Level of Care Code Est Pt Level 3 (36064) Complex EM visit Add On G2211 Diagnoses Anxiety F41.9 Chest pressure R07.89 Additional Codes SHERICE-7 Assessment Billing - SHERICE-7 Assessment Tool: SHERICE-7 Assessment 18196 ([id number]) Time Spent (min) 19
[2024-03-06 08:30] VITALS: BP 120/86; BMI 27.8
== END 2024-03-06 09:07 | disposition home or self-care (01) ==
PROVIDERS: PCP Internal Medicine; Visit Provider Internal Medicine
DX: F41.9 Anxiety disorder, unspecified (principal); R07.89 Other chest pain
CPT/HCPCS: 96127; 99213; G2211

== ENCOUNTER → 2024-03-06 09:14 | Outpatient (REF) | payer OTHER, SELFPAY ==
--- NOTE | 2024-03-06 09:32 | ECG_ITS ---
Test Reason : CP Blood Pressure : / mmHG Vent. Rate : 055 BPM Atrial Rate : 055 BPM P-R Int : 152 ms QRS Dur : 088 ms QT Int : 394 ms P-R-T Axes : 045 062 032 degrees QTc Int : 376 ms Sinus bradycardia Otherwise normal ECG No previous ECGs available Referred By: Gladis Rendon Electronically Signed By:LETY HORN
== END ==
LOC: HO.CARD 09:14
PROVIDERS: PCP Internal Medicine; Visit Provider Internal Medicine
DX: R07.89 Other chest pain (principal)
CPT/HCPCS: 93005

== ENCOUNTER 2024-03-29 08:50 | Outpatient (REF) | payer OTHER, SELFPAY ==
[2024-03-29 10:01] LABS: MANUAL DIFF FLAG NO
[2024-03-29 10:03] LABS: Basophils Percent Auto 0.8 % (0-2); Eosinophils Absolute Auto 0.3 X10*3/uL (0.0-0.4); Eosinophils Percent Auto 4.8 % (0-4); Hematocrit 42.3 % (42.0-52.0); Hemoglobin 14.6 g/dl (14.0-18.0); Imm Gran Abs Auto 0.01 X10*3/uL (0.00-0.03); Imm Gran Pct Auto 0.2 % (0.0-0.4); Lymphocytes Absolute Auto 2.5 X10*3/uL (1.2-4.9); Lymphocytes Percent Auto 46.9 % (20-40); Mean Corpuscular HGB Conc 34.5 g/dl (31.0-36.0); Mean Corpuscular Hemoglobin 30.2 pg (27.0-33.0); Mean Corpuscular Volume 87.4 fL (80.0-98.0); Mean Platelet Volume 9.2 fL (9.4-12.4); Monocytes Absolute Auto 0.4 X10*3/uL (0.1-1.2); Monocytes Percent Auto 7.6 % (2-11); Neutrophils Absolute Auto 2.1 x10*3/uL (2.0-8.3); Neutrophils Percent Auto 39.7 % (45-73); Platelet Count 205 X10*3/uL (160-400); Red Blood Count 4.84 X10*6/uL (4.60-5.80); Red Cell Distribution Width 12.1 % (11.0-16.0); White Blood Count 5.3 X10*3/uL (4.8-10.8)
[2024-03-29 11:00] LABS: Alanine Aminotransferase 33 U/L (0-40); Albumin Level 4.4 g/dL (3.5-5.0); Alkaline Phosphatase 103 U/L (39-117); Anion Gap 11 (12-20); Aspartate Amino Transferase 25 U/L (5-37); Bilirubin Total 0.7 mg/dL (0.0-1.0); Blood Urea Nitrogen 15 mg/dL (9-16); Calcium 9.5 mg/dL (8.4-10.2); Carbon Dioxide 27 mmol/L (22-29); Chloride 104 mmol/L (96-108); Cholesterol 182 mg/dL (<200); Estimated Glomerular Filt Rate > 60; Glucose Fasting 84 mg/dL (60-99); HDL Cholesterol 51 mg/dL (>40); LDL Cholesterol Calculated 120 mg/dL (<100); Sodium 138 mmol/L (135-145); Triglycerides 59 mg/dL (<150)
[2024-03-29 11:02] LABS: Thyroid Stimulating Hormone 0.62 uIU/mL (0.32-4.0)
== END 2024-03-29 08:51 | disposition home or self-care (01) ==
LOC: HO.HMGCLDS 08:50
PROVIDERS: PCP Internal Medicine; Visit Provider Internal Medicine
DX: R07.89 Other chest pain (principal)
CPT/HCPCS: 36415; 80053; 80061; 84443; 85025

== ENCOUNTER 2024-06-17 12:46 | Outpatient (AMB) | payer OTHER, SELFPAY ==
[2024-06-17 12:57] VITALS: BP 118/60; PULSE 64; BMI 27.4
--- NOTE | 2024-06-17 12:57 | A.OFFVIS_ITS ---
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 He is concerned because his mother has had a defibrillator and cardiac issues but not entirely clear as to the nature of them. Patient states that sometimes he feels as though it can not take a deep breath. This happens when he is actually resting. He works in [employer] and is extremely active with no limitations whatsoever. He can exercise extra with no concerns. Otherwise, unlimited physical activity. Every so often, he feels as though his breath is very shallow. No anginal-type symptoms. Nonspecific heart racing type symptoms. He is also known to have anxiety and he is not sure if it is all related to that rather. He wants to get himself checked out. [facility] Medical History Hemorrhoids with complication Chronic fatigue Basal cell carcinoma Surgical History History of hemorrhoidectomy History of knee surgery History of basal cell carcinoma of skin Family History (Updated 06/17/24 @ 13:17 by Andres Cueva MD) Mother Skin cancer Breast cancer Pulmonary fibrosis AICD (automatic cardioverter/defibrillator) present Father Substance use disorder Social History Housing: Apartment Alcohol intake: current Alcohol intake frequency: holidays/special occasions only Alcohol type: beer Patient Tobacco Use Status: Never used Tobacco e-Cigarette/Vaping Use: Never Used Second Hand Smoke Exposure: No service: Yes Current occupational status: employed Current occupational exposures/hazards: No Cognitive needs: No Hearing needs: No Vision needs: No Review of Systems Const Denies weakness ENT Denies dizziness Card Denies chest pain, Denies chest pain with activity, Denies syncope, Denies rapid heart rate, Denies pedal edema, Denies edema, Denies leg edema, Denies lightheadedness, Denies palpitations, Reports dyspnea, Denies dyspnea on exertion and Denies orthopnea Resp Denies cough, Reports dyspnea and Denies dyspnea on exertion GI Denies hematochezia and Denies change in stool character Musc Denies abnormal gait, Denies muscle cramps, Denies muscle weakness, Denies numbness, Denies radiating pain into limb and Denies tingling Neuro Denies abnormal gait, Denies dizziness, Denies syncope, Denies numbness, Denies tingling and Denies weakness Endo Denies palpitations Physical Exam Vital Signs: Last Vital Signs Pulse 64 06/17/24 12:57 BP 118/60 06/17/24 12:57 BMI result Body Mass Index 27.4 Const General: comfortable and no acute distress Orientation/consciousness: patient oriented x3 HEENT Other: Unremarkable Head: Yes normal to inspection Neck Neck: Yes normal visual inspection Chest Chest palpation & inspection: normal inspection of the chest Resp Auscultation: clear to auscultation bilaterally Cardio Palpation: normal PMI Heart sounds: S1 normal heart sound present, S2 normal heart sound present, no gallops, no murmurs and no rubs GI Palpation (GI): Soft to palpation Back/Spine/Pelvis Other: unremarkable Skin General skin exam: no rashes or lesions noted Neuro General: patient oriented x3 Extrem General: Yes normal to inspection Psych Mental Status: mental status grossly normal Office Procedures EKG Details: EKG with underlying sinus rhythm at 64/Min; rightward axis; nonspecific inferior changes; [place] [address]-[id number], Complete Assessment & Plan Assessment & Plan (1) SOB (shortness of breath): Code(s): R06.02 - Shortness of breath Category: Medical Plan Suspect symptoms are more likely from anxiety than anything cardiac. We can do an echocardiogram for cardiac function assessment. If this is unremarkable, then reassurance only. Discussed about this today. We also discussed about what to look out for from cardiac in future and when to contact us or seek help. He understands. Orders: Orders CA echo transthoracic complete Today R06.02 - Shortness of breath Coding Level of Care Code New Pt Level 3 (31269) Diagnoses SOB (shortness of breath) R06.02 CPT Codes EKG - CPT: 53768-[id number], Complete ([id number])
== END 2024-06-17 13:20 | disposition home or self-care (01) ==
PROVIDERS: PCP Internal Medicine; Visit Provider Internal Medicine
DX: R06.02 Shortness of breath (principal)
CPT/HCPCS: 93010; 99203

== ENCOUNTER → 2024-06-17 12:46 | Outpatient (BNVA) | payer OTHER, SELFPAY | PROVIDERS: PCP Internal Medicine; Visit Provider Internal Medicine | DX: R06.02 Shortness of breath (principal) | CPT/HCPCS: 93005; 99202 ==

== ENCOUNTER → 2024-07-11 14:53 | Outpatient (REF) | payer OTHER, SELFPAY ==
--- NOTE | 2024-07-11 14:56 | CA_ITS ---
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 The visually estimated ejection fraction is between 60-65%. Diastolic function is normal for age. Right Ventricle Normal right ventricular cavity size and systolic function. Atria Both atria are normal in size. There is no evidence of interatrial shunt. Aortic Valve Normal aortic valve structure and function. There is no aortic valve stenosis. There is no aortic valve regurgitation. Mitral Valve Normal mitral valve structure and function. There is trace mitral valve regurgitation. There is no mitral valve stenosis. Pulmonic Valve The pulmonic valve is likely normal. There is trace pulmonic valve regurgitation. Tricuspid Valve Normal tricuspid valve structure. There is trace tricuspid valve regurgitation. The right ventricular systolic pressure is normal. The right ventricular systolic pressure is 16 mmHg. Normal right atrial pressure. There is no evidence of pulmonary hypertension. Great Vessels All visible segments of the aorta are normal in size. The visualized portions of the pulmonary artery and branches are normal. Venous The inferior vena cava is normal in size and collapses greater than 50% with inspiration. Pericardium/Pleural There is no evidence of pericardial effusion. Prior Study Comparison No prior study available for comparison. Measurements 2D Linear Measurements IVSd: 0.83 0.6-0.9/0.6-1.0 cm LVIDd: 5.44 3.9-5.3/4.2-5.9 cm LVIDd Index: 2.64 2.4-3.2/2.2-3.1 cm/m2 LVIDs: 3.84 2.0-3.6 cm LVPWd: 0.92 0.7-1.1 cm LA Diam: 3.20 2.7-3.8/3.0-4.0 cm LAIDs Index: 1.55 1.5-2.3 cm/m2 LV Mass: 219.13 67-162/88-224 g LV Mass Index: 106.38 43-95/49-115 g/m2 LVOT Diam: 2.30 3.0+(-)1.3 cm 2D Systolic Function EF 4C: 57.80 >55% EF 2C: 62.30 >55% EF BiP: 60.20 >55% Mitral Valve MV Pk E: 0.70 MV PK A: 0.51 MV Decel Time: 270.00 E/A: 1.40 E'Lateral: 12.40 E'Medial: 10.60 E/E' Med: 6.60 E/E' Lat: 5.60 PHT: 79.00 MVA PHT: 2.78 Decel [place]: 2.59 Aortic Valve AoV Pk Dc: 1.23 AoV Mn Dc: 0.93 AoV VTI: 0.26 AoV Pk Grad: 6.00 Aov Mn Grad: 4.00 JAYME Cont.VTI: 3.37 LVOT LVOT Pk Dc: 1.04 LVOT Mn Dc: 0.70 LVOT VTI: 0.21 LVOT Pk Grad: 4.00 LVOT Mn Grad: 2.00 LVOT Diam: 2.30 LVOT Area: 4.15 Diastolic Function MV Pk E: 0.70 MV Pk A: 0.51 E/A: 1.40 E'Medial: 10.60 E/E' Med: 6.60 E' Laterial: 12.40 E/E' Lat: 5.60 Right Ventricle TAPSE (mm): 28.90 TVS' Dc: 13.50 Tricuspid Valve TR Pk Dc: 1.81 TR Pk Grad: 13.00 RA Press: 3.00 RVSP: 16.00 Great Vessels Aorta Sinus of Valsalva: 3.44 2.0-3.[address] [place]: 2.39 1.7-3.4 cm Ao Asc: 3.00 2.1-3.4 cm Updated in Other Vendor System with Status of Final Glynn Drummond MD electronically signed on 07/12/2024 1:09:54 PM with status of Final
== END ==
LOC: HO.CARD 14:53
PROVIDERS: PCP Internal Medicine; Visit Provider Internal Medicine
DX: R06.02 Shortness of breath (principal)
CPT/HCPCS: 93306

== ENCOUNTER → 2024-07-11 14:56 | Outpatient (BNV) | payer OTHER, SELFPAY | PROVIDERS: PCP Internal Medicine; Visit Provider Internal Medicine Cardiovascular Disease | DX: R06.02 Shortness of breath (principal) | CPT/HCPCS: 93306 ==

== ENCOUNTER 2024-07-15 09:18 | Outpatient (AMB) | payer OTHER, SELFPAY ==
--- NOTE | 2024-07-15 09:21 | MHC.PC.OV ---
Vital Signs 07/15/24 09:24 Height 5 ft 11 in Weight 201 lb BMI 28.0 BP 120/82 Blood Pressure Location Lt brachial Position Sitting Intake Visit Reasons: Annual Exam Intake Note: Patient here for an annual physical exam Cnc Technician Required: No Accompanied by: Self / Same As Patient Allergies No Known Allergies Allergy (Verified 07/15/24 09:33) Medication List - Last Reconciled 07/15/24 by Gladis Rendon MD No Known Home Meds Tobacco use date assessed: 07/15/24 Dental Screening Dental Screen Date: 07/15/24 Did you have a dental visit in the last 12 months?: Yes Did you have a dental problem in the last 6 months where you did not have access to dental care?: No Was dental information given to patient?: Patient has dentist HPI HPI Comments History of Present Illness Details The patient is a 39-year-old male presenting for a routine physical exam. There was a specific check on the tetanus, diphtheria, and acellular pertussis (TDAP) vaccination status, which the patient received during his recent service with the [employer] after the of his child. He confirmed this immunization was kept in line with standard intervals of less than 10 years. He noted a history of normal echocardiogram results and good blood pressure. The patient has no known allergies to medications and is currently not on any prescribed medications. Surgical history includes a hemorrhoidectomy, knee surgery, and removal of a basal cell carcinoma. The family history is notable for a substance use disorder in the father, a maternal history of defibrillator use, breast cancer, skin cancer, and pulmonary fibrosis. The patient reports occasional drinking during holidays and special occasions but denies current cigarette smoking. He also reported seeing a therapist for slight anxiety, for which he is actively undergoing therapy. Recent blood work conducted in March, including cholesterol levels, blood glucose, renal and hepatic function tests, and thyroid function tests, were within normal limits. There have been no complaints of chest pain, shortness of breath, or urinary issues. [facility] Medical History Hemorrhoids with complication Chronic fatigue Basal cell carcinoma Surgical History History of hemorrhoidectomy History of knee surgery History of basal cell carcinoma of skin Family History Mother Skin cancer Breast cancer Pulmonary fibrosis AICD (automatic cardioverter/defibrillator) present Father Substance use disorder Social History Housing: Apartment Alcohol intake: current Alcohol intake frequency: holidays/special occasions only Alcohol type: beer Patient Tobacco Use Status: Never used Tobacco e-Cigarette/Vaping Use: Never Used Second Hand Smoke Exposure: No service: Yes Current occupational status: employed Current occupational exposures/hazards: No Cognitive needs: No Hearing needs: No Vision needs: No Questionnaire PHQ-9 Over the last 2 weeks, how often have you been bothered by any of the following problems? 1. Little interest or pleasure in doing things: not at all 2. Feeling down, depressed, or hopeless: not at all 3. Trouble falling or staying asleep, or sleeping too much: several days 4. Feeling tired or having little energy: not at all 5. Poor appetite or overeating: not at all 6. Feeling bad about yourself - or that you are a failure or have let yourself or your family down: not at all 7. Trouble concentrating on things, such as reading the newspaper or watching television: not at all 8. Moving or speaking so slowly that other people could have noticed. Or the opposite - being so fidgety or restless that you have been moving around a lot more than usual: not at all 9. Thoughts that you would be better off or of hurting yourself in some way: not at all Total score: 1 Depression Screening Interpretation: Negative Depression Screening Done: Yes 99252 - PHQ-9 Billing: Yes Source: Developed by Drs. Zhou Peralta, Terri Moore, Eliud Phan and colleagues, with an educational piyush from [employer]. Thrive Questionnaire Date Thrive assessed: 07/15/24 I am a: Patient What is your living situation today?: I have a steady place to live Within the past 12 months, did the food you bought not last and you didn't have the money to get more?: Never true Within the past 12 months, did you worry whether your food would run out before you got money to buy more?: Never true Do you have trouble paying for medicines?: No Do you have trouble getting transportation to medical appointments?: No Do you have trouble paying your heating and electricity bill?: No Do you have trouble taking care of your child, family member or friend?: No Do you have trouble with day-to-day activities such as bathing, preparing meals, shopping, managing finances, etc.?: No Are you currently unemployed and looking for a job?: No Are you interested in more education?: Yes Please select the resources that you would like help with: Job search/training and Education Currently or been in a relationship where the following occur: No concerns reported THRIVE Score: 0 AUDIT C Alcohol Use Questionnaire (AUDIT-C) 1. How often do you have a drink containing alcohol?: Monthly or less 2. How many drinks containing alcohol do you have on a typical day when you are drinking?: 1 or 2 3. How often do you have six or more drinks on one occasion?: Never Total Score: 1 Score Reviewed/Action Taken: No SHERICE-7 AMB Questionnaire SHERICE-7 Date SHERICE - 7 assessed: 07/15/24 Feeling nervous, anxious, or on edge: 1 = Several days Not being able to stop or control worryin = Not at all Worrying too much about different things: 0 = Not at all Trouble relaxin = Not at all Being so restless that it is hard to sit still: 0 = Not at all Becoming easily annoyed or irritable: 0 = Not at all Feeling afraid as if something awful might happen: 0 = Not at all Total SHERICE-7 score (0-4 normal; 5-9 mild; 10-14 moderate; 15-21 severe): 1 Source: Developed by Drs. Zhou Peralta, Terri Moore, Eliud Phan and colleagues, with an educational piyush from [employer]. SHERICE-7 Assessment Billing SHERICE-7 Assessment Tool: SHERICE-7 Assessment 62585 Review of Systems Const All systems reviewed & are unremarkable except as noted in HPI and below Card Denies chest pain at rest, Denies chest pain with activity, Denies edema, Denies irregular heart rhythm, Denies claudication, Denies dyspnea, Denies dyspnea on exertion, Denies orthopnea, Denies paroxysmal nocturnal dyspnea and Denies slow heart rate Resp Denies cough, Denies dyspnea and Denies dyspnea on exertion GI Denies abdominal pain, Denies change in bowel habits, Denies excessive flatus, Denies nausea and Denies vomiting Denies urinary hesitancy, Denies urinary incontinence and Denies urinary urgency Neuro Denies confusion Psych Denies confusion Physical exam (Primary Care) Vital Signs: Last Vital Signs BP 120/82 07/15/24 09:24 BMI result Body Mass Index 28.0 Tobacco/Smoking Status: Tobacco use Status Tobacco use date assessed 07/15/24 07/15/24 09:27 Patient Tobacco Use Status Never used Tobacco 07/15/24 09:27 e-Cigarette/Vaping Use Never Used 07/15/24 09:27 PHQ-9: PHQ-9 Score PHQ-9: Total score 1 07/15/24 09:27 Depression Screening Interpretation: Negative Thrive Assessment: Date of Thrive Assessment Date Thrive assessed 07/15/24 07/15/24 09:27 Currently or been in a relationship where the following occur: No concerns reported Const General: No confusion Orientation/consciousness: patient oriented x3 and No confusion HENMT Head: Yes normal to inspection, Yes normocephalic and Yes atraumatic Ears: external ears normal Eyes General: appearance normal, both eyes and all related structures Eyelids: Yes eyelids normal Conjunctivae: conjunctivae normal Neck Neck: Yes normal visual inspection and Yes supple Resp Effort & Inspection: normal respiratory effort Auscultation: clear to auscultation bilaterally Cardio Jugular venous distension: no JVD Rate: regular rate Rhythm: regular rhythm Heart sounds: S1 normal heart sound present and S2 normal heart sound present GI Inspection: Yes normal to inspection Palpation (GI): Soft to palpation and nontender Auscultation: normal bowel sounds Skin General skin exam: no rashes or lesions noted Neuro General: patient oriented x3, no focal motor deficits and No confusion Extrem General: Yes full ROM Psych Appearance: grossly normal Coding Level of Care Code Est Pt Prev Care 18-39y(58186) Diagnoses Physical exam Z00.00 Additional Codes PHQ-9 - 01480 - PHQ-9 Billing: Yes ([id number]) SHERICE-7 Assessment Billing - SHERICE-7 Assessment Tool: SHERICE-7 Assessment 34933 ([id number]) Time Spent (min) 30 Assessment & Plan Assessment & Plan (1) Physical exam: Code(s): Z00.00 - Encounter for general adult medical examination without abnormal findings Category: Medical Plan - Continue monitoring and managing anxiety with ongoing therapy. - Maintain current vaccination schedule. - No additional blood work required at this time. - Ongoing primary prevention and health maintenance strategies. Patient was informed and verbally consented to the use of an ambient scribe for clinic note documentation during this visit. During the consultation, I confirmed with the patient that his TDAP vaccination is up to date, aligning with preventative health guidelines. We reviewed the normal results from his recent echocardiogram and blood tests conducted in March. There was no need to repeat blood tests at this time, given the previous normal findings. I provided reassurance concerning his slight anxiety and encouraged continued engagement in therapy that he reports as beneficial. We also addressed alcohol consumption habits and emphasized the importance of maintaining moderation. Overall, the patient appears to be in good health, and we plan to continue routine health maintenance and monitoring. Patient Instructions: - Continue with regular therapeutic sessions for anxiety management. - Maintain current health practices and vaccination schedule. - Monitor for any new symptoms or health changes and report if they arise. - Schedule next routine exam in one year or as recommended.
[2024-07-15 09:24] VITALS: BP 120/82; BMI 28.0
== END 2024-07-15 09:44 | disposition home or self-care (01) ==
PROVIDERS: PCP Internal Medicine; Visit Provider Internal Medicine
DX: Z00.00 Encounter for general adult medical examination without abnormal findings (principal)

== ENCOUNTER → 2024-07-15 09:18 | Outpatient (BNVA) | payer OTHER, SELFPAY | PROVIDERS: PCP Internal Medicine; Visit Provider Internal Medicine | DX: Z00.00 Encounter for general adult medical examination without abnormal findings (principal) | CPT/HCPCS: 96127 ==

== ENCOUNTER 2024-10-29 14:38 | Outpatient (AMB) | payer OTHER, SELFPAY ==
[2024-10-29 14:47] VITALS: BP 110/70; BMI 28.0
--- NOTE | 2024-10-29 14:47 | MHC.PC.OV ---
Vital Signs 10/29/24 14:47 Height 5 ft 11 in Weight 201 lb BMI 28.0 BP 110/70 Blood Pressure Location Lt brachial Position Sitting Intake Visit Reasons: waking up to not seeing from LT eye Salvager Required: No Accompanied by: Self / Same As Patient Allergies No Known Allergies Allergy (Verified 10/29/24 14:52) Medication List - Last Reconciled 10/29/24 by Gladis Rendon MD No Known Home Meds Tobacco use date assessed: 07/15/24 Dental Screening Dental Screen Date: 07/15/24 HPI HPI Comments History of Present Illness Details The patient is a 39-year-old male presenting with transient unilateral vision loss in the left eye, which began about one month ago. These episodes occur upon waking in the morning and are noted to have occurred a couple of times last week. The patient experiences complete vision loss in the left eye accompanied by large black blotches in the peripheral field, leading to tunnel vision. This condition resolves within minutes as the patient transitions into better lighting conditions, without any associated pain or redness. The patient has not experienced any trauma to the eye, does not use contact lenses, and does not report any known allergies to medications. The patient reports occasional migraines, though none have been noted in the past year, and there is a positive family history for migraines (mother). There are no additional neurological symptoms, such as weakness or issues with balance, reported in conjunction with the vision loss episodes. [facility] Medical History Hemorrhoids with complication Chronic fatigue Basal cell carcinoma Surgical History History of hemorrhoidectomy History of knee surgery History of basal cell carcinoma of skin Family History Mother Skin cancer Breast cancer Pulmonary fibrosis AICD (automatic cardioverter/defibrillator) present Father Substance use disorder Social History Housing: Apartment Alcohol intake: current Alcohol intake frequency: holidays/special occasions only Alcohol type: beer Patient Tobacco Use Status: Never used Tobacco e-Cigarette/Vaping Use: Never Used Second Hand Smoke Exposure: No service: Yes Current occupational status: employed Current occupational exposures/hazards: No Cognitive needs: No Hearing needs: No Vision needs: No Questionnaire Thrive Questionnaire Date Thrive assessed: 07/15/24 I am a: Patient What is your living situation today?: I have a steady place to live Within the past 12 months, did the food you bought not last and you didn't have the money to get more?: Never true Within the past 12 months, did you worry whether your food would run out before you got money to buy more?: Never true Do you have trouble paying for medicines?: No Do you have trouble getting transportation to medical appointments?: No Do you have trouble paying your heating and electricity bill?: No Do you have trouble taking care of your child, family member or friend?: No Do you have trouble with day-to-day activities such as bathing, preparing meals, shopping, managing finances, etc.?: No Are you currently unemployed and looking for a job?: No Are you interested in more education?: Yes Currently or been in a relationship where the following occur: No concerns reported THRIVE Score: 0 SHERICE-7 AMB Questionnaire SHERICE-7 Date SHERICE - 7 assessed: 07/15/24 Source: Developed by Drs. Zhou Peralta, Terri Moore, Eliud Phan and colleagues, with an educational piyush from [employer]. Review of Systems Const All systems reviewed & are unremarkable except as noted in HPI and below Card Denies chest pain at rest, Denies chest pain with activity, Denies edema, Denies irregular heart rhythm, Denies claudication, Denies dyspnea, Denies dyspnea on exertion, Denies orthopnea, Denies paroxysmal nocturnal dyspnea and Denies slow heart rate Resp Denies cough, Denies dyspnea and Denies dyspnea on exertion Skin/Breast Denies bleeding lesions, Denies changing lesions and Denies rash Physical exam (Primary Care) Vital Signs: Last Vital Signs BP 110/70 10/29/24 14:47 BMI result Body Mass Index 28.0 Tobacco/Smoking Status: Tobacco use Status Tobacco use date assessed 07/15/24 10/29/24 14:52 Patient Tobacco Use Status Never used Tobacco 10/29/24 14:52 e-Cigarette/Vaping Use Never Used 10/29/24 14:52 Thrive Assessment: Date of Thrive Assessment Date Thrive assessed 07/15/24 10/29/24 14:52 Currently or been in a relationship where the following occur: No concerns reported Eyes General: appearance normal, both eyes and all related structures Eyelids: Yes eyelids normal Conjunctivae: conjunctivae normal Resp Effort & Inspection: normal respiratory effort Auscultation: clear to auscultation bilaterally Cardio Jugular venous distension: no JVD Rate: regular rate Rhythm: regular rhythm Heart sounds: S1 normal heart sound present and S2 normal heart sound present Neuro General: no focal motor deficits Extrem General: Yes full ROM Coding Level of Care Code Est Pt Level 3 (98630) Complex EM visit Add On G2211 Diagnoses Sudden visual loss of left eye H53.132 Laterality: left Time Spent (min) 19 Assessment & Plan Assessment & Plan (1) Acute loss of vision: Code(s): H53.139 - Sudden visual loss, unspecified eye Category: Medical Qualifiers: Laterality: left Qualified Code(s): H53.132 - Sudden visual loss, left eye Plan I have advised referring the patient to the freight weigher, Dr. Kennedy Nunez, for comprehensive evaluation regarding the transient vision loss, suspecting a potential retinal issue. I have also ordered an MRI of the brain, with the understanding that insurance approval is uncertain. If the MRI is not immediately approved, an appeal will be filed, or the freight weigher may request one if deemed necessary. Immediate emergency care is recommended if symptoms worsen or new symptoms such as eye pain or redness develop. Patient was informed and verbally consented to the use of an ambient scribe for clinic note documentation during this visit. I discussed with the patient the suspected retinal issue causing the transient vision loss in the left eye, emphasizing the absence of optic neuritis signs due to the lack of pain. We considered the benefits of an freight weigher's evaluation and an MRI of the brain to rule out central causes, even though the likelihood of insurance denial is present. I provided the contact information for Dr. Kennedy Nunez and stressed the importance of follow-up for ongoing evaluation. The patient is instructed to visit the ER should symptoms worsen, ensuring rapid intervention if the condition escalates. Orders: Orders MR head/brain wo con Today H53.139 - Sudden visual loss, unspecified eye Referrals Ophthalmology Referral H53.139 - Sudden visual loss, unspecified eye Patient Instructions: - Follow up with freight weigher Dr. Kennedy Nunez as soon as possible. - Prepare for the possibility of undergoing an MRI of the brain. - Contact your freight weigher for follow-up information. - Go to the emergency room if you experience pain, redness, or if your symptoms get worse. - Expect a call or instruction on next steps if insurance denies the MRI; we will file an appeal if needed. - Stay vigilant for any changes in vision or new symptoms and report them promptly.
== END 2024-10-29 15:09 | disposition home or self-care (01) ==
LOC: HO.HMCH 14:45
PROVIDERS: PCP Internal Medicine; Visit Provider Internal Medicine
DX: H53.132 Sudden visual loss, left eye (principal)

== ENCOUNTER → 2024-10-29 14:38 | Outpatient (BNVA) | payer OTHER, SELFPAY | PROVIDERS: PCP Internal Medicine; Visit Provider Internal Medicine | DX: H53.132 Sudden visual loss, left eye (principal) | CPT/HCPCS: 99212 ==

== ENCOUNTER → 2024-11-20 19:06 | Outpatient (BNV) | payer OTHER, SELFPAY | PROVIDERS: PCP Internal Medicine; Visit Provider Radiology Neuroradiology | DX: G23.8 Other specified degenerative diseases of basal ganglia (principal); H74.8X2 Other specified disorders of left middle ear and mastoid | CPT/HCPCS: 70551 ==

== ENCOUNTER 2024-11-20 19:07 | Outpatient (REF) | payer OTHER, SELFPAY ==
--- NOTE | ~2024-11-20 | MR_ITS ---
CLINICAL HISTORY: H53.139 - Sudden visual loss, unspecified eye MR Brain without intravenous contrast Comparison: None available Findings: No restricted diffusion of acute brain infarction. No midline shift or hydrocephalus. Cavum velum interpositum. Posterior fossa arachnoid cyst measures 4 mm. Multiple perivascular spaces noted including basal ganglia regions in both frontal lobes. 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 No acute intracranial hemorrhage or peripheral siderosis. Punctate-minimal white matter changes are nonspecific, essentially age-appropriate, and can have an association with vascular type (migraines) headaches (images 16 in 19 of series 8). Otherwise, normal noncontrast signal of the brain parenchyma. Partially empty sella. Imaged orbits are unremarkable for technique and artifacts. [id number] left mastoid effusion. Mild fluid and mucosal thickening of the imaged paranasal sinuses. IMPRESSION: 1. Minimal white matter changes can have an association with vascular type (migraines) headaches. 2. 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 3. Otherwise, normal noncontrast signal of the brain parenchyma. 4. [id number] left mastoid effusion. This document has been electronically signed by: Aaron Townsend MD on 11/20/2024 20:05:08
== END 2024-11-20 19:08 | disposition home or self-care (01) ==
LOC: HO.MRI 19:07
PROVIDERS: PCP Internal Medicine; Visit Provider Internal Medicine
DX: H53.133 Sudden visual loss, bilateral (principal)
CPT/HCPCS: 70551

== ENCOUNTER 2025-01-20 14:53 | Outpatient (REF) | payer OTHER, SELFPAY ==
--- NOTE | ~2025-01-20 | US_ITS ---
EXAMINATION: BILATERAL CAROTID ULTRASOUND WITH DOPPLER HISTORY: I65.29 - Occlusion and stenosis of unspecified carotid artery COMPARISON: There are no prior studies available for comparison. TECHNIQUE: Real time and Color and Spectral doppler ultrasonography of the carotid and vertebral arteries was performed in multiple planes. FINDINGS: No significant plaque is identified. VERTEBRAL FLOW DIRECTION: Antegrade bilaterally. PEAK SYSTOLIC VELOCITIES (in cm/sec): RIGHT: CCA: Prox: 125 Dist: 140 ICA: Prox: 105 Mid: 103 Dist: 77.7 ICA/CCA Ratio: 0.75 ECA: 119 Peak ICA end diastolic velocity (EDV): 35.5 LEFT: CCA: Prox: 138 Dist: 125 ICA: Prox: 116 Mid: 147 Dist: 77.1 ICA/CCA Ratio: 1.07 ECA: 125 Peak ICA end diastolic velocity (EDV): 28.6 US/US carotid duplex BI IMPRESSION: Unremarkable carotid ultrasound. No significant stenosis. Electronically signed by: Zhou Ulloa MD 01/20/2025 03:22 PM EDT
== END 2025-01-20 14:54 | disposition home or self-care (01) ==
LOC: HO.US 14:53
PROVIDERS: PCP Internal Medicine; Visit Provider Internal Medicine
DX: I65.29 Occlusion and stenosis of unspecified carotid artery (principal)
CPT/HCPCS: 93880

== ENCOUNTER → 2025-01-20 14:54 | Outpatient (BNV) | payer OTHER, SELFPAY | PROVIDERS: PCP Internal Medicine; Visit Provider Radiology Diagnostic Radiology | DX: I65.29 Occlusion and stenosis of unspecified carotid artery (principal) | CPT/HCPCS: 93880 ==